=== PATIENT | female | born 1965 | race Caucasian/White ===

== ENCOUNTER 2017-08-08 01:04 | Inpatient (IN) | payer OTHER, BC ==
[2017-08-08] MEDS ORDERED: Fentanyl 100 MCG/2 ML VIAL ONE ×5 (01:35→11:48)
[2017-08-08] MEDS ORDERED: Ondansetron HCl/PF 4 MG/2 ML Vial ONE ×2 (01:35→09:25)
[2017-08-08] MEDS ORDERED: Bacitracin Zinc 1 Packet ONE (01:51)
[2017-08-08] MEDS ORDERED: CEFAZOLIN/Water 2 GM/20 ML SYRINGE ONE (01:51)
[2017-08-08] MEDS ORDERED: Adacel (T-DAP) 0.5 ML VIAL ONE (01:51)
[2017-08-08 01:53] LABS: #Basophils 0.1 thou/uL (0.0-0.2); #Eosinphils 0.1 thou/uL (0.0-0.7); #Lymphocytes 2.1 thou/uL (1.20-3.40); #Monocytes 1.3 thou/uL (0.11-0.59); #Neutrophils 15.7 thou/uL (1.40-6.50); %Basophils 0.4 % (0.0-1.0); %Eosinophils 0.4 % (0.0-10.0); %Lymphocytes 10.6 % (21.0-51.0); %Monocytes 6.8 % (0.0-10.0); Hematocrit 38.4 % (36.0-47.0); Mean Platelet Volume 6.5 fL (7.4-10.4); Red Blood Cell (RBC) Count 3.91 mill/uL (4.20-5.40); White Blood Cell (WBC) Count 19.3 thou/uL (4.8-10.8)
[2017-08-08 01:59] LABS: PTT 25.4 SEC (22.9-36.1); Prothrombin Time 13.5 SEC (12.0-14.7)
[2017-08-08 02:06] LABS: ALT (SGPT) 30 U/L (8-55); AST (SGOT) 60 U/L (5-34); Alkaline Phosphatase 56 U/L (40-150); Anion Gap 16 mmol/L (10-20); BUN (Urea Nitrogen) 11 mg/dL (9.8-20.1); Bilirubin, Total 0.2 mg/dL (0.2-1.2); Calc. Creatinine Clearance 0 mL/min (70-130); Calcium 8.7 mg/dL (7.8-10.44); Carbon Dioxide 22 mmol/L (22-29); Chloride 98 mmol/L (98-107); Estimated GFR-MDRD 86; Globulin 2.4 g/dL (2.4-3.5); Lactic Acid - Sepsis 4.1 mmol/L (0.5-2.2); Lipase 16 U/L (8-78)
[2017-08-08] MEDS ORDERED: ISOVUE-370 76%-LOCM 1 ML ONE (02:06)
[2017-08-08] MEDS ORDERED: Lidocaine 1% w/Epinephrine 1:200K 30 ML VIAL ONE (02:19)
[2017-08-08] MEDS ORDERED: Ondansetron ODT 4 MG TAB PO PRN (04:10)
[2017-08-08] MEDS ORDERED: Dextrose 5% in Water 1,000 ML IV PRN (04:10)
[2017-08-08] MEDS ORDERED: Dextrose 50% Abboject 50 ML SYRINGE SLOW IVP PRN (04:10)
[2017-08-08] MEDS ORDERED: Rib Fracture Protocol IV SCH (04:10)
[2017-08-08] MEDS ORDERED: Promethazine HCl 25 MG/ML VIAL IM PRN ×2 (04:10→11:29)
[2017-08-08] MEDS ORDERED: Ondansetron HCl/PF 4 MG/2 ML Vial IVP PRN ×2 (04:10→11:29)
[2017-08-08] MEDS ORDERED: hydrALAZINE 20 MG/ML VIAL SLOW IVP PRN (04:10)
[2017-08-08 04:12] VITALS: BMI 23.8
[2017-08-08] MEDS: Ketorolac Tromethamine 30 MG/ML VIAL IVP SCH ×4 (04:37→20:15)
[2017-08-08] MEDS: Acetaminophen 650 MG Suppository PR SCH ×3 (04:45→17:27)
[2017-08-08] MEDS: Sodium Chloride 0.9% 1,000 ML IV SCH ×3 (04:45→20:20)
[2017-08-08] MEDS ORDERED: Potassium Chloride 40 MEQ in Sodium Chloride 0.9% 500 ML IVPB SCH (05:00)
[2017-08-08] MEDS ORDERED: MORPHINE 10 MG/ML SYRINGE IV PRN ×2 (05:34→05:35)
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
[2017-08-08] MEDS: Promethazine HCl 25 MG/ML VIAL IM PRN ×2 (07:01→20:21)
[2017-08-08] MEDS ORDERED: Neomycin-Polymyxin 1 ML AMP ONE (08:23)
[2017-08-08] MEDS: Famotidine/PF 20 mg/2ml Vial SLOW IVP SCH ×2 (08:32→20:15)
[2017-08-08] MEDS ORDERED: Ketorolac Tromethamine 30 MG/ML VIAL ONE ×2 (08:39→09:25)
[2017-08-08] MEDS ORDERED: Midazolam HCl 2 mg/2 ml Vial ONE (08:39)
[2017-08-08] MEDS ORDERED: Dexamethasone 20 MG/5 ML VIAL ONE (09:25)
[2017-08-08] MEDS ORDERED: ePHEDrine/0.9% NaCl/PF SYRINGE 50 mg/10 ml ONE (09:25)
[2017-08-08] MEDS ORDERED: Propofol 200 MG/20 ML VIAL ONE (09:25)
[2017-08-08] MEDS ORDERED: Succinylcholine Chloride 20 MG/ML 10 ml SYRINGE FS ONE (09:25)
[2017-08-08] MEDS ORDERED: Lidocaine 2% MPF 10 ML AMP (For Epidural Use) ONE (09:25)
[2017-08-08] MEDS ORDERED: PHENYLEPHRINE-NS 100 MCG/ML 10 ML SYRINGE ONE (09:25)
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
[2017-08-08] MEDS ORDERED: Bupivacaine/Epinephrine 0.25% 30 ML VIAL ONE (09:52)
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
[2017-08-08] MEDS ORDERED: Promethazine HCl 25 MG/ML VIAL SLOW IVP PRN (11:29)
[2017-08-08] MEDS ORDERED: HYDROmorphone 2 MG/ML VIAL SLOW IVP PRN (11:29)
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
--- NOTE | 2017-08-08 21:28 | OP ---
DATE OF OPERATION: 08/08/2017 PREOPERATIVE DIAGNOSIS: Displaced proximal right humeral shaft fracture, grade I open. POSTOPERATIVE DIAGNOSIS: Displaced proximal right humeral shaft fracture, grade I open. PROCEDURES PERFORMED: 1. Irrigation and debridement of the right arm. 2. Open reduction internal fixation of the right proximal humeral shaft fracture. SURGEON: Jeromy Celestin M.D. ANESTHESIA: General. TECHNIQUE: The patient was given preoperative IV antibiotics, taken to the operating room and place d in supine position. Satisfactory general anesthesia was performed. The patient was then placed i n a beach chair position and the right upper extremity was sterilely prepped and draped in the usual fashion. The skin where the proximal humerus had come through and caused a 1 cm laceration, the sk in edges were excised. Blunt dissection was made down to the fracture. The wound was copiously irr igated with antibiotic solution using the high speed cut tobacco bulker. The lateral aspect of the proximal humeral shaft was exposed and reduced with bone clamps and a 7-hole locking plate was placed on the lateral aspect of the proximal humerus and internal fixation was provided using three 3.5 cortical s crews distally and two 3.5 cortical screws and one 3.5 locking screw proximally. The middle hole of the plate was left open since it was directly over the fracture. C-arm was used to verify good ali gnment of the proximal shaft of the fracture and proper placement of the plate and screws. After th e humerus was internally fixed, the wound again was copiously irrigated with the high speed irrigato r using antibiotic solution and then the wound was closed using Vicryl for the fascia over the muscle, 2-0 Vicryl for the fat and subcutaneous tissue, and the skin was closed with 3-0 Rapide. T he wound was then infiltrated with 30 mL, 0.25% Marcaine with epinephrine. Sterile dressing was petrona lied. The patient was then awakened, extubated, and transferred to recovery room in stable conditio n. ESTIMATED BLOOD LOSS: 150 mL COMPLICATIONS: None.
[2017-08-08] MEDS ORDERED: Cyclobenzaprine 10 MG TAB PO PRN (22:30)
[2017-08-08] MEDS: Acetaminophen 500 MG TAB PO SCH (23:45)
[2017-08-08] MEDS: traMADol HCl 50 MG TAB PO SCH (23:46)
[2017-08-08] MEDS: Ibuprofen 600 MG TAB PO SCH (23:46)
[2017-08-09] MEDS: Promethazine HCl 25 MG/ML VIAL IM PRN (04:12)
[2017-08-09] MEDS: Sodium Chloride 0.9% 1,000 ML IV SCH (04:18)
[2017-08-09 04:43] LABS: #Lymphocytes 1.5 thou/uL (1.20-3.40); #Monocytes 1.1 thou/uL (0.11-0.59); #Neutrophils 8.5 thou/uL (1.40-6.50); %Basophils 0.2 % (0.0-1.0); %Eosinophils 0.4 % (0.0-10.0); %Lymphocytes 13.5 % (21.0-51.0); %Monocytes 9.5 % (0.0-10.0); Hematocrit 28.1 % (36.0-47.0); Mean Platelet Volume 6.8 fL (7.4-10.4); White Blood Cell (WBC) Count 11.1 thou/uL (4.8-10.8)
[2017-08-09 04:57] LABS: Anion Gap 10 mmol/L (10-20); BUN (Urea Nitrogen) 8 mg/dL (9.8-20.1); Calc. Creatinine Clearance 97 mL/min (70-130); Carbon Dioxide 25 mmol/L (22-29); Chloride 108 mmol/L (98-107); Estimated GFR-MDRD Greater than 90
[2017-08-09] MEDS: Ibuprofen 600 MG TAB PO SCH ×2 (06:34→11:12)
[2017-08-09] MEDS: Acetaminophen 500 MG TAB PO SCH ×2 (06:34→11:11)
[2017-08-09] MEDS: traMADol HCl 50 MG TAB PO SCH ×2 (06:35→11:10)
[2017-08-09] MEDS: Gabapentin 100 MG CAP PO SCH ×2 (08:17→14:58)
[2017-08-09] MEDS: Famotidine/PF 20 mg/2ml Vial SLOW IVP SCH (08:17)
[2017-08-09] MEDS ORDERED: Enoxaparin Sodium 40 MG/0.4 ML SYRINGE SC SCH (09:00)
--- NOTE | 2017-08-09 10:43 | RAD ---
FRONTAL RADIOGRAPH CHEST PORTABLE URPIGHT: DATE: 08/09/17. COMPARISON: 08/08/17. HISTORY: Reevaluate pneumothorax and rib fractures on the right. FINDINGS: There are numerous displaced right-sided rib fractures seen, unchanged when compared to the 08/08/17 e xam. There is widening of the right AC joint and probably right CC joint suggesting an AC joint inju ry, likely grade III. There is a comminuted incompletely imaged fracture of the right scapula. An i ncompletely imaged proximal right humeral shaft fracture. There is a linear density in the left lung base suggesting volume loss and/or small volume left pleur al effusion. IMPRESSION: No discrete right-sided pneumothorax is seen. There are numerous right-sided rib fractures. There i s a comminuted right-sided scapular fracture and an incompletely imaged proximal right humeral shaft fracture. In addition, there is widening of the right acromioclavicular and right coracoclavicular i nterspace, suggesting a grade III acromioclavicular joint injury. POS: [facility]
[2017-08-09 12:13] VITALS: BP 108/70; TEMP 98.7
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
== END 2017-08-09 15:15 | disposition home or self-care (01) | DRG 958 ==
LOC: ERS 01:04 → SURG A 03:57
PROVIDERS: ADMIT Surgery; ATTEND Surgery
PROC: 0PSF04Z Reposition Right Humeral Shaft with Internal Fixation Device, Open Approach (ICD-10-PCS; principal; 2017-08-08)
PROC: 0WQ20ZZ Repair Face, Open Approach (ICD-10-PCS; 2017-08-08)
PROC: 3E0234Z Introduction of Serum, Toxoid and Vaccine into Muscle, Percutaneous Approach (ICD-10-PCS; 2017-08-08)
DX: S42.301B Unspecified fracture of shaft of humerus, right arm, initial encounter for open fracture (principal); S27.2XXA Traumatic hemopneumothorax, initial encounter; S22.41XA Multiple fractures of ribs, right side, initial encounter for closed fracture; F10.129 Alcohol abuse with intoxication, unspecified; F17.210 Nicotine dependence, cigarettes, uncomplicated; Z23 Encounter for immunization; S42.101A Fracture of unspecified part of scapula, right shoulder, initial encounter for closed fracture; V48.6XXA Car passenger injured in noncollision transport accident in traffic accident, initial encounter; S01.112A Laceration without foreign body of left eyelid and periocular area, initial encounter; E87.6 Hypokalemia
CPT/HCPCS: 36415; 70450; 71010; 71260; 72125; 72170; 74177; 76001; 80048; 80053; 80307; 83605; 83690; 84703; 85025; 85610; 85730; 90471; 90715; 94640; 94760; 96361; 96374; 96375; 99292; C1713; G0390; G8978-GP-CJ; G8979-GP-CJ; G8980-GP-CJ; G8984-GO-CK; G8985-GO-CJ; J1100; J1170; J1650; J1885; J2001; J2250; J2270; J2405; J2550; J2704; J3010; J3480; J7050; J7620; S0028